=== PATIENT | male | born 1970 | race Caucasian/White ===

== ENCOUNTER 2019-01-09 14:35 | Emergency (ER) | payer MEDICAID ==
[2019-01-09 14:44] VITALS: BP 105/76
--- NOTE | 2019-01-09 14:53 | EDPHY ---
H & P Time Seen by Provider: 01/09/19 14:45 HPI/ROS: CHIEF COMPLAINT: Right index finger skin avulsion HISTORY OF PRESENT ILLNESS: 48-year-old male with up-to-date tetanus, right- hand dominant, was using a mandoline Grater, cutting potatoes, sustained skin avulsion to the distal phalanx of the right index finger. Occurred shortly prior to arrival. PHYSICAL EXAM (Prior to examination, patient consented to physical exam, hands were washed and my usual and customary physical exam procedures followed) 1) GENERAL: Well-developed, well-nourished, alert and oriented. Appears to be in no acute distress. 2) HEAD: Normocephalic 3) HEENT: sclera anicteric 4) LUNGS: Breathing comfortably. 5) SKIN: Skin avulsion right index finger distal phalanx. 6) MUSCULOSKELETAL: No FDP FDS dysfunction 7) NEUROLOGIC: Full sensation two-point discrimination intact Smoking Status: Never smoked Constitutional: Initial Vital Signs Temperature (C) 36.9 C 01/09/19 14:42 Heart Rate 70 01/09/19 14:42 Respiratory Rate 17 01/09/19 14:42 Blood Pressure 105/76 01/09/19 14:42 O2 Sat (%) 96 01/09/19 14:42 O2 Delivery Mode Room Air Allergies/Adverse Reactions: Sulfa (Sulfonamide Antibiotics) Allergy (Verified 01/09/19 14:41) Home Medications: Medication Instructions Recorded NK [No Known Home Meds] 01/09/19 MDM/Departure - MDM Procedures: Procedure: Wound management. I explained the indications, risks and benefits for both laceration repair and anesthetic administration. Verbal consent was obtained from the patient. The right index finger was anesthetized using 1% plain lidocaine digital nerve block. Once taken effect wound is clean by ER staff Surgicel dressing placed resulting in hemostasis. Patient tolerated procedure well.. Patient has been informed that scarring will occur, although efforts have been made to minimize this. ED Course/Re-evaluation: Care of patient under supervision of secondary supervising physician Dr Benz . - Depart Disposition: Home, Routine, Self-Care Clinical Impression: Avulsion of skin of index finger Qualifiers: Encounter type: initial encounter Qualified Code(s): S61.208A - Unspecified open wound of other finger without damage to nail, initial encounter Condition: Good Instructions: Skin Avulsion (ED) Additional Instructions: Return to the ER if you develop redness, swelling, discharge, warmth to the wound, red streaks going up your arm, or any other symptoms that concern you. Referrals: Karen Jenkins MD [Medical Doctor] - 2-3 days, call for appt.
== END 2019-01-09 15:27 | disposition home or self-care (01) ==
PROC: 3E0T3BZ Introduction of Anesthetic Agent into Peripheral Nerves and Plexi, Percutaneous Approach (ICD-10-PCS; principal; 2019-01-09)
DX: S61.200A Unspecified open wound of right index finger without damage to nail, initial encounter (principal); W26.8XXA Contact with other sharp object(s), not elsewhere classified, initial encounter; Y93.G1 Activity, food preparation and clean up; Z88.2 Allergy status to sulfonamides